=== PATIENT | female | born 1985 | race Caucasian/White ===

== ENCOUNTER 2018-01-29 14:34 | Emergency (ER) | payer MEDICAID ==
[~2018-01-29] VITALS: Ht 160 cm; Wt 85.7 kg
[2018-01-29 14:39] VITALS: Ht 160 cm; Wt 85.7 kg
[2018-01-29 17:28] LABS: BASOPHIL % 0.4 % (0-2); PLATELET COUNT 354 x10^3mcL (130-400)
[2018-01-29 17:29] LABS: RED CELL DISTRIBUTION WIDTH 16.9 % (11.5-14.5)
[2018-01-29 17:38] LABS: CALCIUM 8.7 mg/dL (8.5-10.1); CARBON DIOXIDE 25.7 mmol/L (21-32); CHLORIDE SERUM 107 mmol/L (98-107); CREATININE SERUM 0.6 mg/dL (0.6-1.0); GFR1 > 60 mL/min; GLUCOSE SERUM 103 mg/dL (74-106); POTASSIUM SERUM 3.9 mmol/L (3.5-5.1); SODIUM SERUM 143 mmol/L (136-145)
[2018-01-29 17:50] LABS: ALBUMIN 3.8 g/dL (3.4-5.0); ALKALINE PHOSPHATASE 66 U/L (46-116); ALT/SGPT 30 U/L (14-59); AST/SGOT 24 U/L (15-37); BILIRUBIN TOTAL 0.23 mg/dL (0.20-1.00); LIPASE 85 IU/L (73-393)
[2018-01-29 17:52] LABS: TOTAL PROTEIN, SERUM 8.7 g/dL (6.4-8.2)
[2018-01-29 20:27] VITALS: BP 130/85
== END 2018-01-29 20:27 | disposition home or self-care (01) ==
LOC: ED 14:34
PROVIDERS: Emergency Medicine
DX: N83.201 Unspecified ovarian cyst, right side (principal); Z98.890 Other specified postprocedural states
CPT/HCPCS: 36415; J1885

== ENCOUNTER 2018-12-03 20:49 | Emergency (ER) | payer SELFPAY ==
[~2018-12-03] VITALS: Ht 157.5 cm; Wt 86.2 kg
[2018-12-03 23:16] LABS: BASOPHIL % 0.4 % (0-2); PLATELET COUNT 309 x10^3mcL (130-400)
[2018-12-03 23:18] LABS: microscopic required? YES; urine erythrocyte 3+ (NEGATIVE)
[2018-12-03 23:18] LABS: RED CELL DISTRIBUTION WIDTH 17.5 % (11.5-14.5)
[2018-12-03 23:23] LABS: CARBON DIOXIDE 25.1 mmol/L (21-32); CHLORIDE SERUM 106 mmol/L (98-107); CREATININE SERUM 0.7 mg/dL (0.6-1.0); GFR1 > 60 mL/min; GLUCOSE SERUM 102 mg/dL (74-106); POTASSIUM SERUM 3.6 mmol/L (3.5-5.1); SODIUM SERUM 140 mmol/L (136-145)
[2018-12-03 23:28] LABS: ALBUMIN 3.7 g/dL (3.4-5.0); ALKALINE PHOSPHATASE 62 U/L (46-116); ALT/SGPT 16 U/L (14-59); AST/SGOT 15 U/L (15-37); BILIRUBIN TOTAL 0.28 mg/dL (0.20-1.00); LIPASE 58 IU/L (73-393); TOTAL PROTEIN, SERUM 7.8 g/dL (6.4-8.2)
[2018-12-04 02:30] VITALS: BP 125/72
== END 2018-12-04 02:30 | disposition home or self-care (01) ==
LOC: ED 20:49
PROVIDERS: Emergency Medicine
DX: R10.11 Right upper quadrant pain (principal); D64.9 Anemia, unspecified
CPT/HCPCS: 36415; J1885; Q0092